=== PATIENT | male | born 1935 | race Caucasian/White ===

== ENCOUNTER 2018-02-22 09:23 | Inpatient (IN) ==
[2018-02-22 10:39] LABS: Basophils % 0.7 % (0.0-0.8); Eosinophils # 0.2 10*3/uL (0.0-0.87); Eosinophils % 3.4 % (0.00-10.9); Hematocrit 38.7 VOL% (42.0-52.0); Immature Granulocytes % 0.7 %; Immature Granulocytes Absolute 0.04 #; Lymphocytes # 1.8 10*3/uL (1.4-4.0); Lymphocytes % 32.7 % (21.2-54.2); Mean Corpuscular Hemoglobin 30 PG (27-34); Mean Corpuscular Volume 97.2 FL (87-102); Mean Platelet Volume 11.5 FL (9.6-12.0); Monocytes # 0.6 10*3/uL (0.11-0.8); Monocytes % 11.4 % (1.7-12.7); Neutrophils # 2.9 10*3/uL (1.4-7.4); Neutrophils % 51.1 % (38.7-73.9); Platelet Count 121 T/CUMM (130-400); Red Blood Count 3.98 MC/CUMM (3.8-5.5); Red Cell Distribution Width 15.9 % (9.3-17.3); White Blood Count 5.6 T/CUMM (4-12)
[2018-02-22 10:45] LABS: PT Patient Result 20.7 SECS
[2018-02-22 10:54] LABS: Albumin 3.2 G/DL (3.4-5.0); Bilirubin,Total 1.1 MG/DL (0.2-1.0); Calcium 9.6 MG/DL (8.5-10.1); Potassium 3.6 MMOL/L (3.5-5.1)
[2018-02-22 11:17] LABS: Apearance,Urine CLEAR (Clear); Bilirubin,Urine Negative (Negative); Blood, Urine Negative (Negative); Glucose,Urine (UA) Negative (Negative); Ketones,Urine Negative (Negative); Nitrite,Urine Negative (Negative); Protein,Urine Negative; RBC,Urine <1 /HPF (0-4); Urine Color Yellow (Yellow); Urine Specific Gravity 1.009 (1.001-1.035); Urine Urobilinogen < 2.0 EU/DL (0.2-1.0); WBC,Urine <1 /HPF (0-6)
[2018-02-22] MEDS ORDERED: ONDANSETRON 4 MG/2 ML VIAL IV PRN (11:38)
[2018-02-22] MEDS ORDERED: ACETAMINOPHEN 325 MG TABLET PO PRN (11:38)
[2018-02-22] MEDS ORDERED: COLCHICINE 0.6 MG TABLET PO PRN (11:42)
[2018-02-22] MEDS ORDERED: traMADol 50 MG TABLET PO PRN (11:42)
[2018-02-22] MEDS: METHOCARBAMOL 500 MG TABLET PO SCH ×3 (13:24→23:14)
[2018-02-22] MEDS: FUROSEMIDE 40 MG TABLET PO SCH (17:28)
[2018-02-22] MEDS: WARFARIN 5 MG TABLET PO SCH (17:29)
[2018-02-22] MEDS ORDERED: TAMSULOSIN 0.4 MG CAPSULE PO SCH (21:00)
[2018-02-22] MEDS ORDERED: AMIODARONE 200 MG TABLET PO SCH (21:00)
[2018-02-22] MEDS: ASPIRIN EC 81 MG TABLET PO SCH (22:10)
[2018-02-22] MEDS: POTASSIUM GLUCONATE 500 MG TABLET PO SCH (22:11)
[2018-02-22] MEDS: DOCUSATE SODIUM 100 MG CAPSULE PO SCH (22:11)
[2018-02-23 04:56] LABS: Basophils % 0.8 % (0.0-0.8); Eosinophils # 0.2 10*3/uL (0.0-0.87); Eosinophils % 3.2 % (0.00-10.9); Hematocrit 35.1 VOL% (42.0-52.0); Hemoglobin 10.9 GM/DL (14.0-18.0); Immature Granulocytes % 0.4 %; Immature Granulocytes Absolute 0.02 #; Lymphocytes # 2.1 10*3/uL (1.4-4.0); Lymphocytes % 39.2 % (21.2-54.2); Mean Corpuscular HGB Conc 31.1 GM/DL (32-36); Mean Corpuscular Hemoglobin 30 PG (27-34); Mean Corpuscular Volume 95.9 FL (87-102); Mean Platelet Volume 11.8 FL (9.6-12.0); Monocytes # 0.6 10*3/uL (0.11-0.8); Monocytes % 11.8 % (1.7-12.7); Neutrophils # 2.3 10*3/uL (1.4-7.4); Neutrophils % 44.6 % (38.7-73.9); Platelet Count 109 T/CUMM (130-400); Red Blood Count 3.66 MC/CUMM (3.8-5.5); Red Cell Distribution Width 15.9 % (9.3-17.3); White Blood Count 5.3 T/CUMM (4-12)
[2018-02-23 05:01] LABS: PT Patient Result 20.3 SECS
[2018-02-23 05:33] LABS: Calcium 9.3 MG/DL (8.5-10.1); Osmolality,Calculated 292.4 MOS/KG (273-304); Potassium 3.5 MMOL/L (3.5-5.1)
[2018-02-23] MEDS ORDERED: DOCUSATE SODIUM 100 MG CAPSULE PO SCH (09:00)
[2018-02-23] MEDS ORDERED: PANTOPRAZOLE 40 MG TABLET PO SCH (09:00)
[2018-02-23] MEDS: CHOLECALCIFEROL 1,000 UNIT TABLET PO SCH (09:42)
[2018-02-23] MEDS: DOCUSATE SODIUM 100 MG CAPSULE PO SCH ×2 (09:42→21:27)
[2018-02-23] MEDS: ROSUVASTATIN 10 MG TABLET PO SCH (09:42)
[2018-02-23] MEDS: METHOCARBAMOL 500 MG TABLET PO SCH ×4 (09:43→21:28)
[2018-02-23] MEDS: FUROSEMIDE 40 MG TABLET PO SCH ×2 (09:45→16:37)
[2018-02-23] MEDS: amLODIPine 2.5 MG TABLET PO SCH (09:45)
[2018-02-23] MEDS: PANTOPRAZOLE 40 MG TABLET PO SCH (09:45)
[2018-02-23] MEDS: POTASSIUM GLUCONATE 500 MG TABLET PO SCH ×2 (09:45→21:27)
[2018-02-23] MEDS: ASCORBIC ACID 500 MG TABLET PO SCH (09:46)
[2018-02-23] MEDS: CYANOCOBALAMIN 500 MCG TABLET PO SCH (09:46)
[2018-02-23 10:05] LABS: Thyroid Stimulating Hormone 4.02 uIU/ml (0.358-3.74); Troponin I 0.017 NG/ML (0.00-0.045)
[2018-02-23] MEDS ORDERED: WARFARIN 5 MG TABLET PO SCH (18:00)
[2018-02-23] MEDS: ALFUZOSIN 10 MG TABLET PO SCH (21:27)
[2018-02-23] MEDS: ASPIRIN EC 81 MG TABLET PO SCH (21:27)
[2018-02-24 03:53] LABS: INR 2.1
[2018-02-24 04:21] LABS: Calcium 9.3 MG/DL (8.5-10.1); Osmolality,Calculated 289.7 MOS/KG (273-304); Potassium 3.5 MMOL/L (3.5-5.1)
[2018-02-24] MEDS: ASCORBIC ACID 500 MG TABLET PO SCH (09:06)
[2018-02-24] MEDS: CYANOCOBALAMIN 500 MCG TABLET PO SCH (09:07)
[2018-02-24] MEDS: PANTOPRAZOLE 40 MG TABLET PO SCH (09:07)
[2018-02-24] MEDS: FUROSEMIDE 40 MG TABLET PO SCH ×2 (09:07→15:49)
[2018-02-24] MEDS: CHOLECALCIFEROL 1,000 UNIT TABLET PO SCH (09:07)
[2018-02-24] MEDS: POTASSIUM GLUCONATE 500 MG TABLET PO SCH ×2 (09:07→20:39)
[2018-02-24] MEDS: DOCUSATE SODIUM 100 MG CAPSULE PO SCH ×2 (09:07→20:40)
[2018-02-24] MEDS: METHOCARBAMOL 500 MG TABLET PO SCH ×4 (09:08→21:38)
[2018-02-24] MEDS: amLODIPine 2.5 MG TABLET PO SCH (09:10)
[2018-02-24] MEDS ORDERED: MAGNESIUM HYDROXIDE SUSP 30 ML UDCUP PO PRN (14:04)
[2018-02-24] MEDS ORDERED: LACTULOSE 20 GM/30 ML UDCUP PO PRN (14:05)
[2018-02-24] MEDS ORDERED: SODIUM PHOSPHATE ENEMA 133 ML BOTTLE RECTAL PRN (14:06)
[2018-02-24] MEDS: WARFARIN 5 MG TABLET PO SCH (17:29)
[2018-02-24] MEDS: ALFUZOSIN 10 MG TABLET PO SCH (20:39)
[2018-02-24] MEDS: ASPIRIN EC 81 MG TABLET PO SCH (20:39)
[2018-02-25 04:19] LABS: INR 2.1
[2018-02-25 04:22] LABS: Basophils % 0.6 % (0.0-0.8); Eosinophils # 0.2 10*3/uL (0.0-0.87); Eosinophils % 2.3 % (0.00-10.9); Hematocrit 36.2 VOL% (42.0-52.0); Hemoglobin 11.5 GM/DL (14.0-18.0); Immature Granulocytes % 0.3 %; Immature Granulocytes Absolute 0.02 #; Lymphocytes # 2.8 10*3/uL (1.4-4.0); Lymphocytes % 39.2 % (21.2-54.2); Mean Corpuscular HGB Conc 31.8 GM/DL (32-36); Mean Corpuscular Hemoglobin 30 PG (27-34); Mean Corpuscular Volume 95.3 FL (87-102); Monocytes # 0.7 10*3/uL (0.11-0.8); Monocytes % 10.1 % (1.7-12.7); Neutrophils # 3.4 10*3/uL (1.4-7.4); Neutrophils % 47.5 % (38.7-73.9); Platelet Count 114 T/CUMM (130-400); White Blood Count 7.1 T/CUMM (4-12)
[2018-02-25 04:37] LABS: Calcium 9.4 MG/DL (8.5-10.1); Potassium 3.4 MMOL/L (3.5-5.1)
[2018-02-25] MEDS ORDERED: LEVOTHYROXINE 25 MCG TABLET PO SCH (06:30)
[2018-02-25] MEDS ORDERED: POTASSIUM CHLORIDE 8 MEQ CAPSULE PO ONE (08:30)
[2018-02-25] MEDS ORDERED: AMIODARONE 200 MG TABLET PO SCH (09:00)
[2018-02-25 09:57] VITALS: BP 117/68
[2018-02-25] MEDS: FUROSEMIDE 40 MG TABLET PO SCH (10:06)
[2018-02-25] MEDS: DOCUSATE SODIUM 100 MG CAPSULE PO SCH (10:07)
[2018-02-25] MEDS: amLODIPine 2.5 MG TABLET PO SCH (10:08)
[2018-02-25] MEDS: ROSUVASTATIN 10 MG TABLET PO SCH (10:08)
[2018-02-25] MEDS: PANTOPRAZOLE 40 MG TABLET PO SCH (10:09)
[2018-02-25] MEDS: METHOCARBAMOL 500 MG TABLET PO SCH (10:09)
[2018-02-25] MEDS: POTASSIUM GLUCONATE 500 MG TABLET PO SCH (10:09)
[2018-02-25] MEDS: CYANOCOBALAMIN 500 MCG TABLET PO SCH (10:09)
[2018-02-25] MEDS: CHOLECALCIFEROL 1,000 UNIT TABLET PO SCH (10:10)
[2018-02-25] MEDS: ASCORBIC ACID 500 MG TABLET PO SCH (10:10)
== END 2018-02-25 12:09 | disposition home or self-care (01) | DRG 312 ==
LOC: N.ED 09:23 → N.EDINP 11:38 → N.TELES 12:34
PROVIDERS: ADMIT Internal Medicine; ATTEND Internal Medicine

== ENCOUNTER 2019-05-02 03:30 | Inpatient (IN) ==
[2019-05-02] MEDS ORDERED: FUROSEMIDE 100 MG/10 ML VIAL IV STA (04:16)
[2019-05-02] MEDS ORDERED: ALBUTEROL/IPRATROPIUM 3 ML NEB RESP TX STA (04:16)
[2019-05-02 04:30] LABS: PT Patient Result 10.8 SECS (9.6-12.2)
[2019-05-02 04:46] LABS: Albumin 2.2 G/DL (3.4-5.0); Bilirubin,Total 1.3 MG/DL (0.2-1.0); Calcium 9.5 MG/DL (8.5-10.1); Osmolality,Calculated 284.8 MOS/KG (273-304)
[2019-05-02] MEDS ORDERED: POTASSIUM CHLORIDE 20 MEQ TABLET PO STA (04:54)
[2019-05-02 05:01] LABS: Apearance,Urine CLEAR (Clear); Bacteria,Urine Occasional /HPF (Few); Bilirubin,Urine Negative (Negative); Blood, Urine Small mg/dL (Negative); Glucose,Urine (UA) Negative (Negative); Ketones,Urine Negative (Negative); Mucus,Urine Occasional /LPF (Occasional); Nitrite,Urine Negative (Negative); Protein,Urine Negative; RBC,Urine 2 /HPF (0-4); Urine Color Colorless (Yellow); Urine Specific Gravity 1.003 (1.001-1.035); Urine Urobilinogen < 2.0 EU/DL (0.2-1.0); WBC,Urine <1 /HPF (0-6)
[2019-05-02] MEDS ORDERED: NITROGLYCERIN SL 0.4 MG TABLET SL STA (05:04)
[2019-05-02 05:05] LABS: Basophils % 0.4 % (0.0-0.8); Eosinophils # 0.1 10*3/uL (0.0-0.87); Eosinophils % 1.4 % (0.00-10.9); Hematocrit 28.6 VOL% (42.0-52.0); Hemoglobin 8.8 GM/DL (14.0-18.0); Immature Granulocytes % 1.4 %; Immature Granulocytes Absolute 0.12 #; Lymphocytes # 1.7 10*3/uL (1.4-4.0); Lymphocytes % 20.5 % (21.2-54.2); Mean Corpuscular HGB Conc 30.8 GM/DL (32-36); Mean Corpuscular Volume 98.3 FL (87-102); Mean Platelet Volume 12.4 FL (9.6-12.0); Monocytes % 14.2 % (1.7-12.7); Neutrophils % 62.1 % (38.7-73.9); Red Blood Count 2.91 MC/CUMM (3.8-5.5); White Blood Count 8.4 T/CUMM (4-12)
[2019-05-02 05:06] LABS: Platelet Count 50 T/CUMM (130-400)
[2019-05-02] MEDS ORDERED: ONDANSETRON 4 MG/2 ML VIAL IV PRN (05:17)
[2019-05-02] MEDS: FUROSEMIDE 40 MG/4 ML VIAL IV SCH ×2 (07:30→18:31)
[2019-05-02] MEDS: PANTOPRAZOLE 40 MG VIAL IV SCH (09:15)
[2019-05-02] MEDS ORDERED: DEXTROMETHORPHAN ER 6 MG/ML 90 ML/BOTTLE PO PRN (10:40)
[2019-05-02] MEDS ORDERED: MAGNESIUM SULF RIDER 2 GM in PREMIX 1 EACH IV ONE (11:15)
[2019-05-02] MEDS ORDERED: POTASSIUM CHLORIDE 20 MEQ TABLET PO ONE (11:15)
[2019-05-02] MEDS ORDERED: COLCHICINE 0.6 MG CAPSULE PO PRN (12:10)
[2019-05-02] MEDS: ASCORBIC ACID 500 MG TABLET PO SCH ×2 (13:00→21:33)
[2019-05-02] MEDS: LACOSAMIDE 50 MG TABLET PO SCH ×2 (13:27→21:34)
[2019-05-02] MEDS: levETIRAcetam 500 MG TABLET PO SCH ×2 (13:27→21:33)
[2019-05-02] MEDS: CYANOCOBALAMIN 500 MCG TABLET PO SCH (13:27)
[2019-05-02] MEDS: CHOLECALCIFEROL 1,000 UNIT TABLET PO SCH (13:27)
[2019-05-02] MEDS: amLODIPine 2.5 MG TABLET PO SCH (13:27)
[2019-05-02] MEDS: DEXTROMETHORPHAN ER 6 MG/ML 90 ML/BOTTLE PO PRN ×2 (13:28→21:38)
[2019-05-02] MEDS ORDERED: FUROSEMIDE 40 MG TABLET PO SCH (19:00)
[2019-05-02] MEDS ORDERED: levETIRAcetam 500 MG TABLET PO SCH (21:00)
[2019-05-02] MEDS ORDERED: LACOSAMIDE 50 MG TABLET PO SCH (21:00)
[2019-05-02] MEDS: LEVOFLOXACIN INJ 500 MG in PREMIX 1 EACH IV SCH (21:27)
[2019-05-02] MEDS: ALFUZOSIN 10 MG TABLET PO SCH (21:33)
[2019-05-02] MEDS: AMIODARONE 200 MG TABLET PO SCH (21:33)
[2019-05-02] MEDS: traMADol 50 MG TABLET PO PRN (23:23)
[2019-05-03] MEDS: FUROSEMIDE 40 MG/4 ML VIAL IV SCH ×2 (05:15→17:11)
[2019-05-03] MEDS: traMADol 50 MG TABLET PO PRN (05:15)
[2019-05-03 08:57] LABS: Basophils % 0.3 % (0.0-0.8); Eosinophils # 0.1 10*3/uL (0.0-0.87); Eosinophils % 1.3 % (0.00-10.9); Hematocrit 30.6 VOL% (42.0-52.0); Hemoglobin 9.2 GM/DL (14.0-18.0); Immature Granulocytes % 1.4 %; Immature Granulocytes Absolute 0.12 #; Lymphocytes # 1.4 10*3/uL (1.4-4.0); Lymphocytes % 16.6 % (21.2-54.2); Mean Corpuscular HGB Conc 30.1 GM/DL (32-36); Mean Platelet Volume 12.6 FL (9.6-12.0); Monocytes % 13.8 % (1.7-12.7); Neutrophils % 66.6 % (38.7-73.9); Red Blood Count 3.09 MC/CUMM (3.8-5.5); Red Cell Distribution Width 15.8 % (9.3-17.3); White Blood Count 8.6 T/CUMM (4-12)
[2019-05-03 09:00] LABS: Platelet Count 32 T/CUMM (130-400)
[2019-05-03] MEDS ORDERED: amLODIPine 2.5 MG TABLET PO SCH (09:00)
[2019-05-03] MEDS ORDERED: PANTOPRAZOLE 40 MG TABLET PO SCH (09:00)
[2019-05-03] MEDS ORDERED: CYANOCOBALAMIN 500 MCG TABLET PO SCH (09:00)
[2019-05-03] MEDS ORDERED: CHOLECALCIFEROL 1,000 UNIT TABLET PO SCH (09:00)
[2019-05-03 09:16] LABS: Hypochromasia 1+; Platelet Estimate Decreased
[2019-05-03 09:28] LABS: Calcium 9.4 MG/DL (8.5-10.1)
[2019-05-03] MEDS: levETIRAcetam 500 MG TABLET PO SCH ×2 (09:53→21:02)
[2019-05-03] MEDS: ASCORBIC ACID 500 MG TABLET PO SCH ×2 (09:55→21:01)
[2019-05-03] MEDS: LACOSAMIDE 50 MG TABLET PO SCH ×2 (09:55→21:01)
[2019-05-03] MEDS: DOCUSATE SODIUM 100 MG CAPSULE PO SCH (10:00)
[2019-05-03] MEDS: amLODIPine 2.5 MG TABLET PO SCH (10:01)
[2019-05-03] MEDS: CYANOCOBALAMIN 500 MCG TABLET PO SCH (10:03)
[2019-05-03] MEDS: POTASSIUM CHLORIDE 20 MEQ TABLET PO SCH (10:06)
[2019-05-03] MEDS: CHOLECALCIFEROL 1,000 UNIT TABLET PO SCH (10:08)
[2019-05-03] MEDS: PANTOPRAZOLE 40 MG VIAL IV SCH (10:53)
[2019-05-03] MEDS ORDERED: ROSUVASTATIN 10 MG TABLET PO SCH ×2 (12:10→21:00)
[2019-05-03] MEDS: LEVOTHYROXINE 25 MCG TABLET PO SCH (12:14)
[2019-05-03] MEDS: DEXTROMETHORPHAN ER 6 MG/ML 90 ML/BOTTLE PO PRN (14:13)
[2019-05-03] MEDS ORDERED: MAGNESIUM SULF RIDER 2 GM in PREMIX 1 EACH IV ONE (17:43)
[2019-05-03 18:14] LABS: Rheumatoid Factor < 15 IU/ML (<15); Total Protein 6.4 G/DL (6.4-8.3)
[2019-05-03] MEDS: LEVOFLOXACIN INJ 500 MG in PREMIX 1 EACH IV SCH (21:01)
[2019-05-03] MEDS: AMIODARONE 200 MG TABLET PO SCH (21:01)
[2019-05-03] MEDS: ALFUZOSIN 10 MG TABLET PO SCH (21:02)
[2019-05-04 05:06] LABS: Total Protein (Chem) 6.4 G/DL (6.4-8.3)
[2019-05-04 05:10] LABS: Basophils % 0.2 % (0.0-0.8); Eosinophils # 0.1 10*3/uL (0.0-0.87); Eosinophils % 1.2 % (0.00-10.9); Hematocrit 27.2 VOL% (42.0-52.0); Hemoglobin 8.3 GM/DL (14.0-18.0); Immature Granulocytes % 1.2 %; Lymphocytes # 1.3 10*3/uL (1.4-4.0); Lymphocytes % 16.2 % (21.2-54.2); Mean Corpuscular HGB Conc 30.5 GM/DL (32-36); Mean Corpuscular Volume 98.2 FL (87-102); Neutrophils % 66.2 % (38.7-73.9); Red Blood Count 2.77 MC/CUMM (3.8-5.5); Red Cell Distribution Width 15.7 % (9.3-17.3); White Blood Count 8.1 T/CUMM (4-12)
[2019-05-04 05:15] LABS: Platelet Count 13 T/CUMM (130-400)
[2019-05-04 05:30] LABS: Albumin 1.9 G/DL (3.4-5.0); Bilirubin,Total 0.9 MG/DL (0.2-1.0); Calcium 9.7 MG/DL (8.5-10.1); Hypochromasia 1+; Osmolality,Calculated 285.8 MOS/KG (273-304); Ovalocytes Slight; Platelet Estimate Decreased
[2019-05-04] MEDS: LEVOTHYROXINE 25 MCG TABLET PO SCH (06:17)
[2019-05-04] MEDS: FUROSEMIDE 40 MG/4 ML VIAL IV SCH (06:17)
[2019-05-04] MEDS ORDERED: IMMUNE GLOBULIN 10% 20 GM in PREMIX 1 EACH IV ONE (06:47)
[2019-05-04] MEDS ORDERED: SODIUM CHLORIDE 0.9% 1,000 ML IV PRN (07:45)
[2019-05-04] MEDS: LACOSAMIDE 50 MG TABLET PO SCH ×2 (08:38→20:54)
[2019-05-04] MEDS: amLODIPine 2.5 MG TABLET PO SCH (08:38)
[2019-05-04] MEDS: POTASSIUM CHLORIDE 20 MEQ TABLET PO SCH (08:38)
[2019-05-04] MEDS: CHOLECALCIFEROL 1,000 UNIT TABLET PO SCH (08:38)
[2019-05-04] MEDS: levETIRAcetam 500 MG TABLET PO SCH ×2 (08:38→20:54)
[2019-05-04] MEDS: DOCUSATE SODIUM 100 MG CAPSULE PO SCH (08:39)
[2019-05-04] MEDS: CYANOCOBALAMIN 500 MCG TABLET PO SCH (08:39)
[2019-05-04] MEDS: methylPREDNISolone SOD SUC 125 MG/2 ML VIAL IV SCH ×2 (08:46→18:15)
[2019-05-04] MEDS: ASCORBIC ACID 500 MG TABLET PO SCH ×2 (08:53→21:03)
[2019-05-04 09:12] LABS: Albumin (SPE) 3.2 G/DL (3.2-5.3); Albumin (SPE) Rel % 49.9 %; Alpha 1 (SPE) 0.3 G/DL (0.1-0.4); Alpha 1 (SPE) Rel % 5.2 %; Alpha 2 (SPE) Rel % 15.6 %; Beta (SPE) 0.9 G/DL (0.5-1.1); Beta (SPE) Rel % 14.6 %; Gamma (SPE) 0.9 G/DL (0.7-1.7); Gamma (SPE) Rel % 14.7 %
[2019-05-04] MEDS: SUCRALFATE 1 GM/10 ML UDCUP PO SCH ×3 (12:32→20:55)
[2019-05-04] MEDS: FUROSEMIDE 40 MG TABLET PO SCH (16:07)
[2019-05-04] MEDS: AMIODARONE 200 MG TABLET PO SCH (20:54)
[2019-05-04] MEDS: LEVOFLOXACIN INJ 500 MG in PREMIX 1 EACH IV SCH (20:54)
[2019-05-04] MEDS: ALFUZOSIN 10 MG TABLET PO SCH (20:54)
[2019-05-05 05:32] LABS: Basophils % 0.1 % (0.0-0.8); Hematocrit 27.8 VOL% (42.0-52.0); Hemoglobin 8.8 GM/DL (14.0-18.0); Immature Granulocytes Absolute 0.12 #; Lymphocytes # 0.6 10*3/uL (1.4-4.0); Lymphocytes % 4.7 % (21.2-54.2); Mean Corpuscular HGB Conc 31.7 GM/DL (32-36); Mean Corpuscular Volume 94.9 FL (87-102); Mean Platelet Volume 14.2 FL (9.6-12.0); Monocytes % 4.1 % (1.7-12.7); Neutrophils % 90.1 % (38.7-73.9); Red Blood Count 2.93 MC/CUMM (3.8-5.5); Red Cell Distribution Width 14.9 % (9.3-17.3)
[2019-05-05 05:36] LABS: White Blood Count 12.3 T/CUMM (4-12)
[2019-05-05 05:37] LABS: Platelet Count 44 T/CUMM (130-400)
[2019-05-05 05:49] LABS: Calcium 10.3 MG/DL (8.5-10.1); Osmolality,Calculated 284.3 MOS/KG (273-304)
[2019-05-05 06:05] LABS: Hypochromasia 1+; Lymphocytes 8 % (20-55); Platelet Estimate Decreased; Segmented Neutrophils 89 % (50-85); Total Cells Counted 100
[2019-05-05] MEDS: methylPREDNISolone SOD SUC 125 MG/2 ML VIAL IV SCH ×2 (06:35→18:34)
[2019-05-05] MEDS: LEVOTHYROXINE 25 MCG TABLET PO SCH (06:35)
[2019-05-05] MEDS: SUCRALFATE 1 GM/10 ML UDCUP PO SCH ×4 (06:35→20:30)
[2019-05-05] MEDS: levETIRAcetam 500 MG TABLET PO SCH ×2 (09:04→20:29)
[2019-05-05] MEDS: FUROSEMIDE 40 MG TABLET PO SCH ×2 (09:05→16:36)
[2019-05-05] MEDS: CYANOCOBALAMIN 500 MCG TABLET PO SCH (09:05)
[2019-05-05] MEDS: CHOLECALCIFEROL 1,000 UNIT TABLET PO SCH (09:05)
[2019-05-05] MEDS: amLODIPine 2.5 MG TABLET PO SCH (09:05)
[2019-05-05] MEDS: DOCUSATE SODIUM 100 MG CAPSULE PO SCH (09:06)
[2019-05-05] MEDS: POTASSIUM CHLORIDE 20 MEQ TABLET PO SCH (09:06)
[2019-05-05] MEDS: LACOSAMIDE 50 MG TABLET PO SCH ×2 (09:06→20:30)
[2019-05-05] MEDS: ASCORBIC ACID 500 MG TABLET PO SCH ×2 (09:20→20:29)
[2019-05-05] MEDS ORDERED: POTASSIUM CHLORIDE 20 MEQ PACK PO ONE (10:55)
[2019-05-05] MEDS: AMIODARONE 200 MG TABLET PO SCH (20:29)
[2019-05-05] MEDS: carvediloL 3.125 MG TABLET PO SCH (20:29)
[2019-05-05] MEDS: ALFUZOSIN 10 MG TABLET PO SCH (20:30)
[2019-05-05] MEDS: LEVOFLOXACIN INJ 500 MG in PREMIX 1 EACH IV SCH (20:30)
[2019-05-06 04:44] LABS: Basophils % 0.1 % (0.0-0.8); Hematocrit 27.6 VOL% (42.0-52.0); Hemoglobin 8.4 GM/DL (14.0-18.0); Immature Granulocytes Absolute 0.13 #; Lymphocytes # 0.6 10*3/uL (1.4-4.0); Lymphocytes % 4.4 % (21.2-54.2); Mean Corpuscular HGB Conc 30.4 GM/DL (32-36); Mean Corpuscular Volume 95.8 FL (87-102); Mean Platelet Volume 13.9 FL (9.6-12.0); Monocytes % 3.4 % (1.7-12.7); Neutrophils % 91.1 % (38.7-73.9); Red Blood Count 2.88 MC/CUMM (3.8-5.5); Red Cell Distribution Width 15.1 % (9.3-17.3); White Blood Count 13.4 T/CUMM (4-12)
[2019-05-06 04:47] LABS: Platelet Count 61 T/CUMM (130-400)
[2019-05-06 05:06] LABS: Osmolality,Calculated 292.3 MOS/KG (273-304)
[2019-05-06 05:14] LABS: Hypochromasia 1+; Lymphocytes 5 % (20-55); Platelet Estimate Decreased; Segmented Neutrophils 91 % (50-85); Total Cells Counted 100
[2019-05-06] MEDS: methylPREDNISolone SOD SUC 125 MG/2 ML VIAL IV SCH ×2 (06:25→18:06)
[2019-05-06] MEDS: LEVOTHYROXINE 25 MCG TABLET PO SCH (06:25)
[2019-05-06] MEDS: SUCRALFATE 1 GM/10 ML UDCUP PO SCH ×5 (06:29→20:41)
[2019-05-06] MEDS: CYANOCOBALAMIN 500 MCG TABLET PO SCH (09:28)
[2019-05-06] MEDS: CHOLECALCIFEROL 1,000 UNIT TABLET PO SCH (09:28)
[2019-05-06] MEDS: ASCORBIC ACID 500 MG TABLET PO SCH ×2 (09:28→20:40)
[2019-05-06] MEDS: POTASSIUM CHLORIDE 20 MEQ TABLET PO SCH (09:28)
[2019-05-06] MEDS: DOCUSATE SODIUM 100 MG CAPSULE PO SCH (09:28)
[2019-05-06] MEDS: amLODIPine 2.5 MG TABLET PO SCH (09:28)
[2019-05-06] MEDS: LACOSAMIDE 50 MG TABLET PO SCH ×2 (09:30→20:41)
[2019-05-06] MEDS: levETIRAcetam 500 MG TABLET PO SCH ×2 (09:31→20:40)
[2019-05-06] MEDS: carvediloL 3.125 MG TABLET PO SCH ×2 (10:11→20:41)
[2019-05-06] MEDS: FUROSEMIDE 40 MG TABLET PO SCH ×2 (10:11→16:44)
[2019-05-06] MEDS: ACETAMINOPHEN 325 MG TABLET PO PRN ×2 (14:09→20:38)
[2019-05-06] MEDS: POLYETHYLENE GLYCOL POWDER 17 GM PACK PO SCH (14:10)
[2019-05-06] MEDS: AMIODARONE 200 MG TABLET PO SCH (20:39)
[2019-05-06] MEDS: ALFUZOSIN 10 MG TABLET PO SCH (20:41)
[2019-05-06] MEDS: LEVOFLOXACIN INJ 500 MG in PREMIX 1 EACH IV SCH (20:42)
[2019-05-07 05:50] LABS: Basophils % 0.1 % (0.0-0.8); Hematocrit 30.1 VOL% (42.0-52.0); Hemoglobin 9.1 GM/DL (14.0-18.0); Immature Granulocytes % 1.1 %; Immature Granulocytes Absolute 0.11 #; Lymphocytes # 0.7 10*3/uL (1.4-4.0); Lymphocytes % 6.9 % (21.2-54.2); Mean Corpuscular HGB Conc 30.2 GM/DL (32-36); Mean Corpuscular Volume 96.8 FL (87-102); Mean Platelet Volume 12.8 FL (9.6-12.0); Neutrophils % 88.9 % (38.7-73.9); Platelet Count 97 T/CUMM (130-400); Red Blood Count 3.11 MC/CUMM (3.8-5.5); Red Cell Distribution Width 15.2 % (9.3-17.3); White Blood Count 9.7 T/CUMM (4-12)
[2019-05-07 06:04] LABS: Calcium 10.5 MG/DL (8.5-10.1); Osmolality,Calculated 293.1 MOS/KG (273-304)
[2019-05-07 06:10] LABS: Platelet Estimate Decreased
[2019-05-07 06:11] LABS: Anisocytosis 2+
[2019-05-07 06:12] LABS: Basophilic Stippling Slight; Hypochromasia Slight
[2019-05-07] MEDS: methylPREDNISolone SOD SUC 125 MG/2 ML VIAL IV SCH (06:31)
[2019-05-07] MEDS: LEVOTHYROXINE 25 MCG TABLET PO SCH (06:31)
[2019-05-07] MEDS: SUCRALFATE 1 GM/10 ML UDCUP PO SCH ×4 (09:08→21:17)
[2019-05-07] MEDS: levETIRAcetam 500 MG TABLET PO SCH ×2 (09:09→21:17)
[2019-05-07] MEDS: POLYETHYLENE GLYCOL POWDER 17 GM PACK PO SCH (09:09)
[2019-05-07] MEDS: DOCUSATE SODIUM 100 MG CAPSULE PO SCH (09:12)
[2019-05-07] MEDS: LACOSAMIDE 50 MG TABLET PO SCH ×2 (09:12→21:17)
[2019-05-07] MEDS: carvediloL 3.125 MG TABLET PO SCH ×2 (09:12→21:18)
[2019-05-07] MEDS: amLODIPine 5 MG TABLET PO SCH (09:13)
[2019-05-07] MEDS: FUROSEMIDE 40 MG TABLET PO SCH ×2 (09:13→10:09)
[2019-05-07] MEDS: ASCORBIC ACID 500 MG TABLET PO SCH ×2 (09:14→21:18)
[2019-05-07] MEDS: POTASSIUM CHLORIDE 20 MEQ TABLET PO SCH (09:17)
[2019-05-07] MEDS: CHOLECALCIFEROL 1,000 UNIT TABLET PO SCH (09:17)
[2019-05-07] MEDS: CYANOCOBALAMIN 500 MCG TABLET PO SCH (09:17)
[2019-05-07] MEDS: FUROSEMIDE 20 MG TABLET PO SCH (16:12)
[2019-05-07] MEDS: AMIODARONE 200 MG TABLET PO SCH (21:17)
[2019-05-07] MEDS: LEVOFLOXACIN INJ 500 MG in PREMIX 1 EACH IV SCH (21:19)
[2019-05-07] MEDS: ALFUZOSIN 10 MG TABLET PO SCH (21:36)
[2019-05-08 04:42] LABS: Basophils % 0.2 % (0.0-0.8); Hematocrit 41.1 VOL% (42.0-52.0); Hemoglobin 12.5 GM/DL (14.0-18.0); Immature Granulocytes % 1.4 %; Immature Granulocytes Absolute 0.13 #; Lymphocytes # 1.1 10*3/uL (1.4-4.0); Lymphocytes % 11.7 % (21.2-54.2); Mean Corpuscular HGB Conc 30.4 GM/DL (32-36); Monocytes % 6.9 % (1.7-12.7); Neutrophils % 79.8 % (38.7-73.9); Platelet Count 54 T/CUMM (130-400); Red Blood Count 4.28 MC/CUMM (3.8-5.5); Red Cell Distribution Width 15.5 % (9.3-17.3); White Blood Count 9.2 T/CUMM (4-12)
[2019-05-08 04:55] LABS: Calcium 10.3 MG/DL (8.5-10.1)
[2019-05-08] MEDS: LEVOTHYROXINE 25 MCG TABLET PO SCH (06:01)
[2019-05-08 06:30] LABS: Band Neutrophils 1 % (0-10); Lymphocytes 8 % (20-55); Segmented Neutrophils 84 % (50-85); Total Cells Counted 100
[2019-05-08 06:31] LABS: Anisocytosis 1+; Platelet Estimate Decreased
[2019-05-08] MEDS: POTASSIUM CHLORIDE 20 MEQ TABLET PO SCH (08:34)
[2019-05-08] MEDS: amLODIPine 5 MG TABLET PO SCH (08:34)
[2019-05-08] MEDS: SUCRALFATE 1 GM/10 ML UDCUP PO SCH ×4 (08:34→20:16)
[2019-05-08] MEDS: LACOSAMIDE 50 MG TABLET PO SCH ×2 (08:34→20:15)
[2019-05-08] MEDS: FUROSEMIDE 40 MG TABLET PO SCH (08:35)
[2019-05-08] MEDS: CYANOCOBALAMIN 500 MCG TABLET PO SCH (08:35)
[2019-05-08] MEDS: POLYETHYLENE GLYCOL POWDER 17 GM PACK PO SCH (08:35)
[2019-05-08] MEDS: DOCUSATE SODIUM 100 MG CAPSULE PO SCH (08:35)
[2019-05-08] MEDS: ASCORBIC ACID 500 MG TABLET PO SCH ×2 (08:35→20:15)
[2019-05-08] MEDS: CHOLECALCIFEROL 1,000 UNIT TABLET PO SCH (08:35)
[2019-05-08] MEDS: carvediloL 3.125 MG TABLET PO SCH ×2 (08:35→20:16)
[2019-05-08] MEDS: levETIRAcetam 500 MG TABLET PO SCH ×2 (08:41→20:15)
[2019-05-08] MEDS ORDERED: predniSONE 20 MG TABLET PO SCH (09:00)
[2019-05-08 12:19] LABS: Albumin 2.1 G/DL (3.4-5.0); Bilirubin,Total 0.4 MG/DL (0.2-1.0); Osmolality,Calculated 293.1 MOS/KG (273-304); Total Protein 6.4 G/DL (6.4-8.3)
[2019-05-08] MEDS: FUROSEMIDE 20 MG TABLET PO SCH (16:41)
[2019-05-08] MEDS: methylPREDNISolone SOD SUC 125 MG/2 ML VIAL IV SCH (17:28)
[2019-05-08] MEDS: AMIODARONE 200 MG TABLET PO SCH (20:15)
[2019-05-08] MEDS: ALFUZOSIN 10 MG TABLET PO SCH (20:16)
[2019-05-08] MEDS: LEVOFLOXACIN INJ 500 MG in PREMIX 1 EACH IV SCH (20:16)
[2019-05-09 04:27] LABS: Calcium 9.9 MG/DL (8.5-10.1); Osmolality,Calculated 292.3 MOS/KG (273-304)
[2019-05-09 05:13] LABS: Basophils % 0.1 % (0.0-0.8); Hematocrit 31.2 VOL% (42.0-52.0); Hemoglobin 9.4 GM/DL (14.0-18.0); Immature Granulocytes % 2.3 %; Immature Granulocytes Absolute 0.19 #; Lymphocytes # 0.7 10*3/uL (1.4-4.0); Lymphocytes % 8.5 % (21.2-54.2); Mean Corpuscular HGB Conc 30.1 GM/DL (32-36); Mean Corpuscular Volume 96.9 FL (87-102); Mean Platelet Volume 12.1 FL (9.6-12.0); Monocytes % 2.7 % (1.7-12.7); Neutrophils % 86.4 % (38.7-73.9); Platelet Count 131 T/CUMM (130-400); Red Blood Count 3.22 MC/CUMM (3.8-5.5); Red Cell Distribution Width 15.4 % (9.3-17.3); White Blood Count 8.1 T/CUMM (4-12)
[2019-05-09] MEDS: methylPREDNISolone SOD SUC 125 MG/2 ML VIAL IV SCH (06:10)
[2019-05-09] MEDS: LEVOTHYROXINE 25 MCG TABLET PO SCH (06:10)
[2019-05-09] MEDS: SUCRALFATE 1 GM/10 ML UDCUP PO SCH ×4 (06:32→21:18)
[2019-05-09] MEDS: ASCORBIC ACID 500 MG TABLET PO SCH ×2 (09:26→21:18)
[2019-05-09] MEDS: POLYETHYLENE GLYCOL POWDER 17 GM PACK PO SCH (09:26)
[2019-05-09] MEDS: amLODIPine 5 MG TABLET PO SCH (09:27)
[2019-05-09] MEDS: FUROSEMIDE 40 MG TABLET PO SCH (09:27)
[2019-05-09] MEDS: CHOLECALCIFEROL 1,000 UNIT TABLET PO SCH (09:27)
[2019-05-09] MEDS: CYANOCOBALAMIN 500 MCG TABLET PO SCH (09:27)
[2019-05-09] MEDS: DOCUSATE SODIUM 100 MG CAPSULE PO SCH (09:28)
[2019-05-09] MEDS: LACOSAMIDE 50 MG TABLET PO SCH ×2 (09:28→21:19)
[2019-05-09] MEDS: levETIRAcetam 500 MG TABLET PO SCH ×2 (09:28→21:18)
[2019-05-09] MEDS: POTASSIUM CHLORIDE 20 MEQ TABLET PO SCH (09:28)
[2019-05-09] MEDS: carvediloL 3.125 MG TABLET PO SCH ×2 (09:28→21:18)
[2019-05-09 12:07] LABS: Albumin 2.1 G/DL (3.4-5.0); Bilirubin,Total 0.4 MG/DL (0.2-1.0); Calcium 9.7 MG/DL (8.5-10.1); Osmolality,Calculated 291.4 MOS/KG (273-304); Total Protein 6.1 G/DL (6.4-8.3)
[2019-05-09] MEDS: FUROSEMIDE 20 MG TABLET PO SCH (16:35)
[2019-05-09] MEDS: AMIODARONE 200 MG TABLET PO SCH (21:18)
[2019-05-09] MEDS: ALFUZOSIN 10 MG TABLET PO SCH (21:19)
[2019-05-09] MEDS: predniSONE 50 MG TABLET PO SCH (21:19)
[2019-05-09] MEDS: LEVOFLOXACIN INJ 500 MG in PREMIX 1 EACH IV SCH (21:27)
[2019-05-10 05:10] LABS: Basophils % 0.2 % (0.0-0.8); Hematocrit 31.9 VOL% (42.0-52.0); Hemoglobin 9.7 GM/DL (14.0-18.0); Immature Granulocytes % 2.1 %; Immature Granulocytes Absolute 0.28 #; Lymphocytes # 0.9 10*3/uL (1.4-4.0); Lymphocytes % 6.4 % (21.2-54.2); Mean Corpuscular HGB Conc 30.4 GM/DL (32-36); Mean Corpuscular Volume 96.1 FL (87-102); Mean Platelet Volume 11.8 FL (9.6-12.0); Monocytes % 3.3 % (1.7-12.7); Platelet Count 148 T/CUMM (130-400); Red Blood Count 3.32 MC/CUMM (3.8-5.5); Red Cell Distribution Width 15.6 % (9.3-17.3); White Blood Count 13.3 T/CUMM (4-12)
[2019-05-10 05:35] LABS: Calcium 9.6 MG/DL (8.5-10.1); Osmolality,Calculated 293.4 MOS/KG (273-304)
[2019-05-10] MEDS: LEVOTHYROXINE 25 MCG TABLET PO SCH (06:34)
[2019-05-10] MEDS: SUCRALFATE 1 GM/10 ML UDCUP PO SCH ×4 (08:55→22:04)
[2019-05-10] MEDS: POLYETHYLENE GLYCOL POWDER 17 GM PACK PO SCH (08:56)
[2019-05-10] MEDS: CHOLECALCIFEROL 1,000 UNIT TABLET PO SCH (08:57)
[2019-05-10] MEDS: amLODIPine 5 MG TABLET PO SCH (08:57)
[2019-05-10] MEDS: FUROSEMIDE 40 MG TABLET PO SCH (08:57)
[2019-05-10] MEDS: LACOSAMIDE 50 MG TABLET PO SCH ×2 (08:57→21:59)
[2019-05-10] MEDS: ASCORBIC ACID 500 MG TABLET PO SCH ×2 (08:57→22:00)
[2019-05-10] MEDS: DOCUSATE SODIUM 100 MG CAPSULE PO SCH (08:57)
[2019-05-10] MEDS: levETIRAcetam 500 MG TABLET PO SCH ×2 (08:58→22:01)
[2019-05-10] MEDS: CYANOCOBALAMIN 500 MCG TABLET PO SCH (08:58)
[2019-05-10] MEDS: carvediloL 3.125 MG TABLET PO SCH ×2 (08:58→22:03)
[2019-05-10] MEDS: predniSONE 50 MG TABLET PO SCH ×2 (08:58→22:03)
[2019-05-10] MEDS: CLOTRIMAZOLE 1% CREAM 15 GM TUBE TOP SCH ×2 (09:03→22:03)
[2019-05-10] MEDS: NYSTATIN 500,000 UNIT/5 ML UDCUP SWISH/SWAL SCH ×4 (11:11→22:04)
[2019-05-10] MEDS: ACETAMINOPHEN 325 MG TABLET PO PRN ×2 (13:50→22:16)
[2019-05-10] MEDS: FUROSEMIDE 20 MG TABLET PO SCH (15:25)
[2019-05-10] MEDS: ALFUZOSIN 10 MG TABLET PO SCH (22:00)
[2019-05-10] MEDS: AMIODARONE 200 MG TABLET PO SCH (22:02)
[2019-05-11 04:08] LABS: Basophils % 0.1 % (0.0-0.8); Hematocrit 31.7 VOL% (42.0-52.0); Hemoglobin 9.6 GM/DL (14.0-18.0); Immature Granulocytes % 1.8 %; Immature Granulocytes Absolute 0.21 #; Lymphocytes # 0.7 10*3/uL (1.4-4.0); Lymphocytes % 5.4 % (21.2-54.2); Mean Corpuscular HGB Conc 30.3 GM/DL (32-36); Mean Corpuscular Volume 96.1 FL (87-102); Mean Platelet Volume 11.1 FL (9.6-12.0); Monocytes % 2.9 % (1.7-12.7); Neutrophils % 89.8 % (38.7-73.9); Platelet Count 138 T/CUMM (130-400); Red Cell Distribution Width 15.8 % (9.3-17.3)
[2019-05-11 04:18] LABS: Calcium 9.2 MG/DL (8.5-10.1); Osmolality,Calculated 294.3 MOS/KG (273-304)
[2019-05-11] MEDS: LEVOTHYROXINE 25 MCG TABLET PO SCH (06:01)
[2019-05-11] MEDS: POLYETHYLENE GLYCOL POWDER 17 GM PACK PO SCH (09:31)
[2019-05-11] MEDS: NYSTATIN 500,000 UNIT/5 ML UDCUP SWISH/SWAL SCH (09:31)
[2019-05-11] MEDS: SUCRALFATE 1 GM/10 ML UDCUP PO SCH (09:31)
[2019-05-11] MEDS: predniSONE 50 MG TABLET PO SCH (09:32)
[2019-05-11] MEDS: DOCUSATE SODIUM 100 MG CAPSULE PO SCH (09:32)
[2019-05-11] MEDS: amLODIPine 5 MG TABLET PO SCH (09:32)
[2019-05-11] MEDS: CYANOCOBALAMIN 500 MCG TABLET PO SCH (09:32)
[2019-05-11] MEDS: LACOSAMIDE 50 MG TABLET PO SCH (09:32)
[2019-05-11] MEDS: FUROSEMIDE 40 MG TABLET PO SCH (09:32)
[2019-05-11] MEDS: levETIRAcetam 500 MG TABLET PO SCH (09:32)
[2019-05-11] MEDS: ASCORBIC ACID 500 MG TABLET PO SCH (09:32)
[2019-05-11] MEDS: carvediloL 3.125 MG TABLET PO SCH (09:33)
[2019-05-11] MEDS: CHOLECALCIFEROL 1,000 UNIT TABLET PO SCH (09:33)
[2019-05-11] MEDS: CLOTRIMAZOLE 1% CREAM 15 GM TUBE TOP SCH (09:33)
[2019-05-11 11:17] VITALS: BP 152/81
== END 2019-05-11 13:26 | disposition swing bed (61) | DRG 291 ==
LOC: EDBD → EDUNIT# → N.ED 03:30 → N.EDINP 05:16 → N.TELES 05:46
PROVIDERS: ADMIT Internal Medicine; ATTEND Internal Medicine

== ENCOUNTER 2019-05-25 10:32 | Inpatient (IN) ==
[2019-05-25] MEDS ORDERED: ONDANSETRON 4 MG/2 ML VIAL IV STA (11:09)
[2019-05-25] MEDS ORDERED: SODIUM CHLORIDE 0.9% 500 ML IV STA (11:09)
[2019-05-25 11:31] LABS: Basophils % 0.3 % (0.0-0.8); Eosinophils # 0.1 10*3/uL (0.0-0.87); Eosinophils % 0.4 % (0.00-10.9); Hematocrit 37.9 VOL% (42.0-52.0); Hemoglobin 11.8 GM/DL (14.0-18.0); Immature Granulocytes % 0.8 %; Immature Granulocytes Absolute 0.09 #; Lymphocytes # 2.8 10*3/uL (1.4-4.0); Lymphocytes % 24.2 % (21.2-54.2); Mean Corpuscular HGB Conc 31.1 GM/DL (32-36); Mean Corpuscular Volume 95.7 FL (87-102); Mean Platelet Volume 11.1 FL (9.6-12.0); Neutrophils % 67.3 % (38.7-73.9); Platelet Count 102 T/CUMM (130-400); Red Blood Count 3.96 MC/CUMM (3.8-5.5); Red Cell Distribution Width 16.7 % (9.3-17.3); White Blood Count 11.5 T/CUMM (4-12)
[2019-05-25 11:49] LABS: Albumin 2.3 G/DL (3.4-5.0); Bilirubin,Total 0.7 MG/DL (0.2-1.0); Calcium 10.1 MG/DL (8.5-10.1); Osmolality,Calculated 289.1 MOS/KG (273-304)
[2019-05-25] MEDS: AMIODARONE 200 MG TABLET PO SCH (21:00)
[2019-05-25] MEDS: carvediloL 3.125 MG TABLET PO SCH (21:01)
[2019-05-25] MEDS: ZINC OXIDE PASTE 113 GM TUBE TOP SCH (21:02)
[2019-05-25] MEDS ORDERED: POTASSIUM CHLORIDE 20 MEQ TABLET PO ONE (22:20)
[2019-05-26] MEDS: methylPREDNISolone SOD SUC 40 MG/1 ML VIAL IV SCH ×3 (00:12→16:29)
[2019-05-26] MEDS: SODIUM CHLORIDE 0.45% 1,000 ML IV SCH ×2 (00:13→16:31)
[2019-05-26] MEDS: ALBUTEROL/IPRATROPIUM 3 ML NEB RESP TX SCH ×5 (00:29→20:23)
[2019-05-26] MEDS ORDERED: ALBUTEROL/IPRATROPIUM 3 ML NEB RESP TX SCH (01:00)
[2019-05-26] MEDS: metroNIDAZOLE INJ 500 MG in PREMIX 1 EACH IV SCH ×3 (01:17→16:31)
[2019-05-26] MEDS: LEVOTHYROXINE 25 MCG TABLET PO SCH (05:38)
[2019-05-26 05:42] LABS: Basophils % 0.3 % (0.0-0.8); Eosinophils # 0.1 10*3/uL (0.0-0.87); Eosinophils % 0.4 % (0.00-10.9); Hematocrit 33.3 VOL% (42.0-52.0); Immature Granulocytes % 0.8 %; Immature Granulocytes Absolute 0.09 #; Lymphocytes # 3.1 10*3/uL (1.4-4.0); Lymphocytes % 27.1 % (21.2-54.2); Mean Corpuscular Volume 96.5 FL (87-102); Mean Platelet Volume 11.1 FL (9.6-12.0); Monocytes % 6.7 % (1.7-12.7); Neutrophils % 64.7 % (38.7-73.9); Platelet Count 84 T/CUMM (130-400); Red Blood Count 3.45 MC/CUMM (3.8-5.5); Red Cell Distribution Width 16.9 % (9.3-17.3); White Blood Count 11.5 T/CUMM (4-12)
[2019-05-26 06:08] LABS: Hypochromasia 1+; Macrocytosis Slight
[2019-05-26 06:09] LABS: Platelet Estimate Decreased
[2019-05-26 06:35] LABS: Calcium 9.5 MG/DL (8.5-10.1); Thyroid Stimulating Hormone 2.23 uIU/ml (0.358-3.74)
[2019-05-26] MEDS: cefTRIAXone 500 MG in SYRINGE 1 EACH IV SCH (08:35)
[2019-05-26] MEDS: FUROSEMIDE 40 MG TABLET PO SCH (08:36)
[2019-05-26] MEDS: carvediloL 3.125 MG TABLET PO SCH ×2 (08:37→21:36)
[2019-05-26] MEDS: CYANOCOBALAMIN 500 MCG TABLET PO SCH (08:37)
[2019-05-26] MEDS: ZINC OXIDE PASTE 113 GM TUBE TOP SCH ×2 (08:37→21:36)
[2019-05-26] MEDS: POTASSIUM CHLORIDE 20 MEQ TABLET PO SCH (08:37)
[2019-05-26] MEDS ORDERED: DOCUSATE SODIUM 100 MG CAPSULE PO SCH ×2 (09:00→21:00)
[2019-05-26 15:44] LABS: Apearance,Urine Slightly Hazy (Clear); Bilirubin,Urine Negative (Negative); Blood, Urine Negative (Negative); Glucose,Urine (UA) Negative (Negative); Ketones,Urine Negative (Negative); Mucus,Urine Occasional /LPF (Occasional); Nitrite,Urine Negative (Negative); Protein,Urine Negative; RBC,Urine <1 /HPF (0-4); Urine Color Yellow (Yellow); Urine Urobilinogen < 2.0 EU/DL (0.2-1.0); WBC,Urine 1 /HPF (0-6)
[2019-05-26] MEDS: MAGNESIUM HYDROXIDE SUSP 30 ML UDCUP PO SCH (21:35)
[2019-05-26] MEDS: DOCUSATE SODIUM 100 MG CAPSULE PO SCH (21:35)
[2019-05-26] MEDS: AMIODARONE 200 MG TABLET PO SCH (21:36)
[2019-05-27] MEDS: ALBUTEROL/IPRATROPIUM 3 ML NEB RESP TX SCH ×4 (00:38→18:53)
[2019-05-27] MEDS: methylPREDNISolone SOD SUC 40 MG/1 ML VIAL IV SCH ×3 (01:07→18:02)
[2019-05-27] MEDS: metroNIDAZOLE INJ 500 MG in PREMIX 1 EACH IV SCH ×3 (02:20→18:04)
[2019-05-27 05:40] LABS: Basophils % 0.2 % (0.0-0.8); Hematocrit 31.9 VOL% (42.0-52.0); Hemoglobin 9.7 GM/DL (14.0-18.0); Immature Granulocytes % 1.1 %; Immature Granulocytes Absolute 0.07 #; Lymphocytes # 1.5 10*3/uL (1.4-4.0); Lymphocytes % 22.9 % (21.2-54.2); Mean Corpuscular HGB Conc 30.4 GM/DL (32-36); Mean Corpuscular Volume 95.8 FL (87-102); Monocytes % 1.7 % (1.7-12.7); Neutrophils % 74.1 % (38.7-73.9); Platelet Count 77 T/CUMM (130-400); Red Blood Count 3.33 MC/CUMM (3.8-5.5); Red Cell Distribution Width 16.1 % (9.3-17.3); White Blood Count 6.5 T/CUMM (4-12)
[2019-05-27 06:03] LABS: Atypical Lymphocytes Few; Hypochromasia 1+; Lymphocytes 18 % (20-55); Polychromasia Slight; Segmented Neutrophils 81 % (50-85); Total Cells Counted 100
[2019-05-27 06:04] LABS: Platelet Estimate Decreased
[2019-05-27 06:21] LABS: Calcium 8.9 MG/DL (8.5-10.1); Osmolality,Calculated 294.8 MOS/KG (273-304)
[2019-05-27] MEDS: LEVOTHYROXINE 25 MCG TABLET PO SCH (06:33)
[2019-05-27] MEDS: carvediloL 3.125 MG TABLET PO SCH ×2 (10:05→21:31)
[2019-05-27] MEDS: DOCUSATE SODIUM 100 MG CAPSULE PO SCH ×2 (10:05→21:31)
[2019-05-27] MEDS: FUROSEMIDE 40 MG TABLET PO SCH (10:05)
[2019-05-27] MEDS: POTASSIUM CHLORIDE 20 MEQ TABLET PO SCH (10:05)
[2019-05-27] MEDS: CYANOCOBALAMIN 500 MCG TABLET PO SCH (10:05)
[2019-05-27] MEDS: SODIUM CHLORIDE 0.45% 1,000 ML IV SCH (10:10)
[2019-05-27] MEDS: MAGNESIUM HYDROXIDE SUSP 30 ML UDCUP PO SCH ×2 (10:10→21:32)
[2019-05-27] MEDS: cefTRIAXone 500 MG in SYRINGE 1 EACH IV SCH (10:11)
[2019-05-27] MEDS: ZINC OXIDE PASTE 113 GM TUBE TOP SCH ×2 (10:11→21:32)
[2019-05-27] MEDS: AMIODARONE 200 MG TABLET PO SCH (21:31)
[2019-05-28] MEDS: ALBUTEROL/IPRATROPIUM 3 ML NEB RESP TX SCH ×4 (00:34→19:30)
[2019-05-28] MEDS: methylPREDNISolone SOD SUC 40 MG/1 ML VIAL IV SCH ×3 (01:04→16:31)
[2019-05-28] MEDS: SODIUM CHLORIDE 0.45% 1,000 ML IV SCH ×2 (01:04→18:48)
[2019-05-28] MEDS: metroNIDAZOLE INJ 500 MG in PREMIX 1 EACH IV SCH ×3 (01:35→16:32)
[2019-05-28] MEDS: LEVOTHYROXINE 25 MCG TABLET PO SCH (05:43)
[2019-05-28 06:53] LABS: Calcium 9.1 MG/DL (8.5-10.1)
[2019-05-28] MEDS ORDERED: LOSARTAN 25 MG TABLET PO SCH (09:00)
[2019-05-28] MEDS: FUROSEMIDE 40 MG TABLET PO SCH (09:57)
[2019-05-28] MEDS: DOCUSATE SODIUM 100 MG CAPSULE PO SCH ×2 (09:57→21:43)
[2019-05-28] MEDS: carvediloL 3.125 MG TABLET PO SCH ×2 (09:58→21:43)
[2019-05-28] MEDS: CYANOCOBALAMIN 500 MCG TABLET PO SCH (09:58)
[2019-05-28] MEDS: POTASSIUM CHLORIDE 20 MEQ TABLET PO SCH (09:58)
[2019-05-28] MEDS: ZINC OXIDE PASTE 113 GM TUBE TOP SCH ×2 (09:59→21:43)
[2019-05-28] MEDS: cefTRIAXone 500 MG in SYRINGE 1 EACH IV SCH (09:59)
[2019-05-28] MEDS: MAGNESIUM HYDROXIDE SUSP 30 ML UDCUP PO SCH ×2 (10:29→21:43)
[2019-05-28] MEDS ORDERED: cloNIDine 0.1 MG TABLET PO ONE (16:05)
[2019-05-28] MEDS ORDERED: cloNIDine 0.1 MG TABLET PO PRN (16:05)
[2019-05-28] MEDS: AMIODARONE 200 MG TABLET PO SCH (21:43)
[2019-05-29] MEDS: ALBUTEROL/IPRATROPIUM 3 ML NEB RESP TX SCH ×4 (00:29→19:48)
[2019-05-29] MEDS: methylPREDNISolone SOD SUC 40 MG/1 ML VIAL IV SCH ×3 (01:41→17:24)
[2019-05-29] MEDS: metroNIDAZOLE INJ 500 MG in PREMIX 1 EACH IV SCH ×3 (01:42→17:24)
[2019-05-29] MEDS: LEVOTHYROXINE 25 MCG TABLET PO SCH (06:03)
[2019-05-29] MEDS: cefTRIAXone 500 MG in SYRINGE 1 EACH IV SCH (10:06)
[2019-05-29] MEDS: LOSARTAN 50 MG TABLET PO SCH (10:08)
[2019-05-29] MEDS: POTASSIUM CHLORIDE 20 MEQ TABLET PO SCH (10:08)
[2019-05-29] MEDS: carvediloL 3.125 MG TABLET PO SCH ×2 (10:09→21:41)
[2019-05-29] MEDS: FUROSEMIDE 40 MG TABLET PO SCH (10:09)
[2019-05-29] MEDS: DOCUSATE SODIUM 100 MG CAPSULE PO SCH ×2 (10:09→21:41)
[2019-05-29] MEDS: CYANOCOBALAMIN 500 MCG TABLET PO SCH (10:09)
[2019-05-29] MEDS: SODIUM CHLORIDE 0.45% 1,000 ML IV SCH ×2 (10:10→21:40)
[2019-05-29] MEDS: ZINC OXIDE PASTE 113 GM TUBE TOP SCH ×2 (10:11→21:42)
[2019-05-29] MEDS: MAGNESIUM HYDROXIDE SUSP 30 ML UDCUP PO SCH ×2 (11:55→21:40)
[2019-05-29] MEDS: AMIODARONE 200 MG TABLET PO SCH (21:40)
[2019-05-30] MEDS: metroNIDAZOLE INJ 500 MG in PREMIX 1 EACH IV SCH ×3 (01:06→17:15)
[2019-05-30] MEDS: methylPREDNISolone SOD SUC 40 MG/1 ML VIAL IV SCH ×3 (01:06→17:15)
[2019-05-30] MEDS: ALBUTEROL/IPRATROPIUM 3 ML NEB RESP TX SCH ×4 (02:22→19:44)
[2019-05-30 05:40] LABS: Basophils % 0.3 % (0.0-0.8); Hematocrit 35.4 VOL% (42.0-52.0); Hemoglobin 10.7 GM/DL (14.0-18.0); Immature Granulocytes % 2.4 %; Immature Granulocytes Absolute 0.16 #; Lymphocytes # 1.6 10*3/uL (1.4-4.0); Lymphocytes % 23.8 % (21.2-54.2); Mean Corpuscular HGB Conc 30.2 GM/DL (32-36); Mean Corpuscular Volume 95.7 FL (87-102); Mean Platelet Volume 11.5 FL (9.6-12.0); Monocytes % 6.1 % (1.7-12.7); Neutrophils % 67.4 % (38.7-73.9); Platelet Count 85 T/CUMM (130-400); White Blood Count 6.7 T/CUMM (4-12)
[2019-05-30] MEDS: LEVOTHYROXINE 25 MCG TABLET PO SCH (05:51)
[2019-05-30 06:29] LABS: Platelet Estimate Decreased; Polychromasia Few
[2019-05-30 06:40] LABS: Calcium 8.7 MG/DL (8.5-10.1); Osmolality,Calculated 292.6 MOS/KG (273-304)
[2019-05-30] MEDS: carvediloL 3.125 MG TABLET PO SCH ×2 (08:50→20:48)
[2019-05-30] MEDS: POTASSIUM CHLORIDE 20 MEQ TABLET PO SCH (08:50)
[2019-05-30] MEDS: DOCUSATE SODIUM 100 MG CAPSULE PO SCH ×2 (08:50→20:48)
[2019-05-30] MEDS: FUROSEMIDE 40 MG TABLET PO SCH (08:51)
[2019-05-30] MEDS: CYANOCOBALAMIN 500 MCG TABLET PO SCH (08:51)
[2019-05-30] MEDS: LOSARTAN 50 MG TABLET PO SCH ×2 (08:51→20:48)
[2019-05-30] MEDS: ZINC OXIDE PASTE 113 GM TUBE TOP SCH ×2 (08:52→20:49)
[2019-05-30] MEDS: cefTRIAXone 500 MG in SYRINGE 1 EACH IV SCH (08:52)
[2019-05-30] MEDS: MAGNESIUM HYDROXIDE SUSP 30 ML UDCUP PO SCH ×2 (08:53→20:47)
[2019-05-30] MEDS: SODIUM CHLORIDE 0.45% 1,000 ML IV SCH ×2 (12:57→17:08)
[2019-05-30] MEDS: AMIODARONE 200 MG TABLET PO SCH (20:48)
[2019-05-31] MEDS: metroNIDAZOLE INJ 500 MG in PREMIX 1 EACH IV SCH ×3 (00:45→17:19)
[2019-05-31] MEDS: ALBUTEROL/IPRATROPIUM 3 ML NEB RESP TX SCH ×4 (01:14→20:44)
[2019-05-31] MEDS: SODIUM CHLORIDE 0.45% 1,000 ML IV SCH (05:35)
[2019-05-31] MEDS: LEVOTHYROXINE 25 MCG TABLET PO SCH (05:35)
[2019-05-31] MEDS: FUROSEMIDE 40 MG TABLET PO SCH (08:28)
[2019-05-31] MEDS: CYANOCOBALAMIN 500 MCG TABLET PO SCH (08:28)
[2019-05-31] MEDS: carvediloL 3.125 MG TABLET PO SCH ×2 (08:28→20:34)
[2019-05-31] MEDS: POTASSIUM CHLORIDE 20 MEQ TABLET PO SCH (08:28)
[2019-05-31] MEDS: LOSARTAN 50 MG TABLET PO SCH ×2 (08:28→20:34)
[2019-05-31] MEDS: ZINC OXIDE PASTE 113 GM TUBE TOP SCH ×2 (08:29→20:34)
[2019-05-31] MEDS: MAGNESIUM HYDROXIDE SUSP 30 ML UDCUP PO SCH ×2 (08:29→20:33)
[2019-05-31] MEDS: DOCUSATE SODIUM 100 MG CAPSULE PO SCH ×2 (08:29→20:34)
[2019-05-31] MEDS: cefTRIAXone 500 MG in SYRINGE 1 EACH IV SCH (08:29)
[2019-05-31] MEDS: methylPREDNISolone SOD SUC 40 MG/1 ML VIAL IV SCH ×3 (08:29→20:34)
[2019-05-31 08:53] LABS: Basophils % 0.5 % (0.0-0.8); Hematocrit 37.8 VOL% (42.0-52.0); Hemoglobin 11.4 GM/DL (14.0-18.0); Immature Granulocytes % 3.2 %; Immature Granulocytes Absolute 0.28 #; Lymphocytes # 2.2 10*3/uL (1.4-4.0); Lymphocytes % 25.6 % (21.2-54.2); Mean Corpuscular HGB Conc 30.2 GM/DL (32-36); Mean Corpuscular Volume 95.5 FL (87-102); Mean Platelet Volume 10.7 FL (9.6-12.0); Monocytes % 7.5 % (1.7-12.7); Neutrophils % 63.2 % (38.7-73.9); Platelet Count 85 T/CUMM (130-400); Red Blood Count 3.96 MC/CUMM (3.8-5.5); Red Cell Distribution Width 15.9 % (9.3-17.3); White Blood Count 8.7 T/CUMM (4-12)
[2019-05-31 09:12] LABS: Hypochromasia 1+; Platelet Estimate Decreased
[2019-05-31 09:18] LABS: Albumin 2.2 G/DL (3.4-5.0); Bilirubin,Total 0.9 MG/DL (0.2-1.0); Calcium 8.6 MG/DL (8.5-10.1); Osmolality,Calculated 286.8 MOS/KG (273-304); Total Protein 5.1 G/DL (6.4-8.3)
[2019-05-31] MEDS: DIVALPROEX ER 500 MG TABLET PO SCH ×2 (17:19→20:33)
[2019-05-31] MEDS ORDERED: ACETAMINOPHEN 325 MG TABLET PO PRN (18:34)
[2019-05-31] MEDS: AMIODARONE 200 MG TABLET PO SCH (20:33)
[2019-06-01] MEDS: SODIUM CHLORIDE 0.45% 1,000 ML IV SCH ×2 (00:32→14:56)
[2019-06-01] MEDS: metroNIDAZOLE INJ 500 MG in PREMIX 1 EACH IV SCH ×3 (00:33→17:14)
[2019-06-01] MEDS: ALBUTEROL/IPRATROPIUM 3 ML NEB RESP TX SCH ×4 (01:10→19:48)
[2019-06-01 04:39] LABS: Basophils % 0.3 % (0.0-0.8); Eosinophils % 0.3 % (0.00-10.9); Hematocrit 34.6 VOL% (42.0-52.0); Hemoglobin 10.6 GM/DL (14.0-18.0); Immature Granulocytes % 4.5 %; Immature Granulocytes Absolute 0.33 #; Lymphocytes # 2.2 10*3/uL (1.4-4.0); Mean Corpuscular HGB Conc 30.6 GM/DL (32-36); Mean Corpuscular Volume 95.1 FL (87-102); Mean Platelet Volume 11.2 FL (9.6-12.0); Monocytes % 8.8 % (1.7-12.7); Neutrophils % 56.1 % (38.7-73.9); Red Blood Count 3.64 MC/CUMM (3.8-5.5); Red Cell Distribution Width 15.9 % (9.3-17.3); White Blood Count 7.4 T/CUMM (4-12)
[2019-06-01 04:41] LABS: Platelet Count 62 T/CUMM (130-400)
[2019-06-01 04:57] LABS: Lymphocytes 34 % (20-55); Nucleated Red Blood Cells 1 (0-5); Platelet Estimate Decreased; Segmented Neutrophils 53 % (50-85); Total Cells Counted 100
[2019-06-01 04:58] LABS: Hypochromasia 1+
[2019-06-01 05:16] LABS: Albumin 1.8 G/DL (3.4-5.0); Bilirubin,Total 1.1 MG/DL (0.2-1.0); Calcium 8.6 MG/DL (8.5-10.1); Total Protein 4.5 G/DL (6.4-8.3)
[2019-06-01] MEDS: LEVOTHYROXINE 25 MCG TABLET PO SCH (05:55)
[2019-06-01] MEDS: cefTRIAXone 500 MG in SYRINGE 1 EACH IV SCH (09:40)
[2019-06-01] MEDS: MAGNESIUM HYDROXIDE SUSP 30 ML UDCUP PO SCH ×2 (09:41→20:35)
[2019-06-01] MEDS: POTASSIUM CHLORIDE 20 MEQ TABLET PO SCH (09:43)
[2019-06-01] MEDS: carvediloL 3.125 MG TABLET PO SCH ×2 (09:43→20:35)
[2019-06-01] MEDS: DOCUSATE SODIUM 100 MG CAPSULE PO SCH ×2 (09:43→20:35)
[2019-06-01] MEDS: FUROSEMIDE 40 MG TABLET PO SCH (09:43)
[2019-06-01] MEDS: ZINC OXIDE PASTE 113 GM TUBE TOP SCH ×2 (09:43→20:36)
[2019-06-01] MEDS: LOSARTAN 50 MG TABLET PO SCH ×2 (09:43→20:35)
[2019-06-01] MEDS: CYANOCOBALAMIN 500 MCG TABLET PO SCH (09:44)
[2019-06-01] MEDS: methylPREDNISolone SOD SUC 40 MG/1 ML VIAL IV SCH ×2 (09:44→20:35)
[2019-06-01] MEDS: DIVALPROEX ER 500 MG TABLET PO SCH ×2 (14:56→20:35)
[2019-06-01] MEDS: AMIODARONE 200 MG TABLET PO SCH (20:35)
[2019-06-02] MEDS: ALBUTEROL/IPRATROPIUM 3 ML NEB RESP TX SCH ×3 (00:35→12:44)
[2019-06-02] MEDS: metroNIDAZOLE INJ 500 MG in PREMIX 1 EACH IV SCH ×2 (01:27→08:54)
[2019-06-02] MEDS: SODIUM CHLORIDE 0.45% 1,000 ML IV SCH ×2 (05:54→16:09)
[2019-06-02] MEDS: LEVOTHYROXINE 25 MCG TABLET PO SCH (05:55)
[2019-06-02 07:46] LABS: Basophils % 0.4 % (0.0-0.8); Eosinophils # 0.1 10*3/uL (0.0-0.87); Eosinophils % 0.7 % (0.00-10.9); Hematocrit 38.2 VOL% (42.0-52.0); Hemoglobin 11.6 GM/DL (14.0-18.0); Immature Granulocytes % 3.6 %; Immature Granulocytes Absolute 0.25 #; Lymphocytes # 2.3 10*3/uL (1.4-4.0); Lymphocytes % 33.2 % (21.2-54.2); Mean Corpuscular HGB Conc 30.4 GM/DL (32-36); Mean Corpuscular Volume 96.2 FL (87-102); Monocytes % 10.6 % (1.7-12.7); Neutrophils % 51.5 % (38.7-73.9); Platelet Count 50 T/CUMM (130-400); Red Blood Count 3.97 MC/CUMM (3.8-5.5); Red Cell Distribution Width 16.4 % (9.3-17.3)
[2019-06-02 08:01] LABS: Hypochromasia 1+; Platelet Estimate Decreased
[2019-06-02 08:09] LABS: Albumin 1.9 G/DL (3.4-5.0); Bilirubin,Total 0.6 MG/DL (0.2-1.0); Calcium 8.9 MG/DL (8.5-10.1); Total Protein 4.8 G/DL (6.4-8.3)
[2019-06-02] MEDS: FUROSEMIDE 40 MG TABLET PO SCH (08:51)
[2019-06-02] MEDS: cefTRIAXone 500 MG in SYRINGE 1 EACH IV SCH (08:51)
[2019-06-02] MEDS: carvediloL 3.125 MG TABLET PO SCH (08:52)
[2019-06-02] MEDS: LOSARTAN 50 MG TABLET PO SCH (08:52)
[2019-06-02] MEDS: DOCUSATE SODIUM 100 MG CAPSULE PO SCH (08:52)
[2019-06-02] MEDS: DIVALPROEX ER 500 MG TABLET PO SCH (08:53)
[2019-06-02] MEDS: MAGNESIUM HYDROXIDE SUSP 30 ML UDCUP PO SCH (08:53)
[2019-06-02] MEDS: methylPREDNISolone SOD SUC 40 MG/1 ML VIAL IV SCH (08:53)
[2019-06-02] MEDS: POTASSIUM CHLORIDE 20 MEQ TABLET PO SCH (08:53)
[2019-06-02] MEDS: ZINC OXIDE PASTE 113 GM TUBE TOP SCH (08:53)
[2019-06-02] MEDS: CYANOCOBALAMIN 500 MCG TABLET PO SCH (08:54)
[2019-06-02 16:48] VITALS: BP 140/75
== END 2019-06-02 18:13 | disposition swing bed (61) | DRG 57 ==
LOC: EDBD → EDUNIT# → N.ED 10:32 → N.EDINP 12:43 → N.TELEN 15:19
PROVIDERS: ADMIT Internal Medicine; ATTEND Internal Medicine

== ENCOUNTER 2019-06-16 20:38 | Inpatient (IN) ==
[2019-06-16] MEDS ORDERED: SODIUM CHLORIDE 0.9% 1,000 ML IV SCH (23:00)
[2019-06-16] MEDS ORDERED: ALBUTEROL 2.5 MG/3 ML NEB RESP TX PRN (23:44)
[2019-06-16 23:55] LABS: Apearance,Urine CLEAR (Clear); Bacteria,Urine Many /HPF (Few); Bilirubin,Urine Negative (Negative); Blood, Urine Negative (Negative); Glucose,Urine (UA) Negative (Negative); Hyaline Casts,Urine 3 /LPF (0-3); Ketones,Urine Negative (Negative); Mucus,Urine Occasional /LPF (Occasional); Nitrite,Urine Negative (Negative); Protein,Urine Negative; RBC,Urine 1 /HPF (0-4); Squamous Epithelial Cell,Urine Occasional /HPF (0-10); Urine Color Yellow (Yellow); Urine Specific Gravity 1.016 (1.001-1.035); Urine Urobilinogen < 2.0 EU/DL (0.2-1.0); WBC,Urine 1 /HPF (0-6)
[2019-06-17] MEDS ORDERED: predniSONE 20 MG TABLET PO SCH (00:30)
[2019-06-17] MEDS ORDERED: NOREPINEPHRINE 8 MG in SODIUM CHLORIDE 0.9% 242 ML IV PRN (00:35)
[2019-06-17] MEDS ORDERED: LEVALBUTEROL 1.25 MG/3 ML NEB RESP TX SCH (01:00)
[2019-06-17 01:25] VITALS: BP 73/42
[2019-06-17 04:34] LABS: Hematocrit 29.8 VOL% (42.0-52.0); Hemoglobin 9.2 GM/DL (14.0-18.0)
[2019-06-17] MEDS ORDERED: LEVOTHYROXINE 25 MCG TABLET PO SCH (06:00)
[2019-06-17] MEDS ORDERED: CYANOCOBALAMIN 500 MCG TABLET PO SCH (09:00)
[2019-06-17] MEDS ORDERED: PANTOPRAZOLE 40 MG TABLET PO SCH (09:00)
[2019-06-17] MEDS ORDERED: ALFUZOSIN 10 MG TABLET PO SCH (09:00)
[2019-06-17] MEDS ORDERED: carvediloL 3.125 MG TABLET PO SCH (09:00)
[2019-06-17] MEDS ORDERED: CHOLECALCIFEROL 1,000 UNIT TABLET PO SCH (09:00)
[2019-06-17] MEDS ORDERED: ASPIRIN CHEW 81 MG TABLET PO SCH (09:00)
[2019-06-17] MEDS ORDERED: AMIODARONE 200 MG TABLET PO SCH (09:00)
[2019-06-17] MEDS ORDERED: LEVOFLOXACIN INJ 500 MG in PREMIX 1 EACH IV SCH (18:00)
== END 2019-06-17 03:37 | disposition expired | DRG 872 ==
LOC: N.CC 22:40
PROVIDERS: ADMIT Internal Medicine; ATTEND Internal Medicine